=== PATIENT | male | born 1950 | race Caucasian/White ===

== ENCOUNTER 2017-03-13 13:29 | Emergency (ER) | payer BC ==
[~2017-03-13] VITALS: Ht 177.8 cm; Wt 102.6 kg
[~2017-03-13 13:29] MED LIST: LISI-729 PO
[2017-03-13 13:38] VITALS: TEMP 36.8; Ht 177.8 cm; Wt 102.6 kg
[2017-03-13] MEDS ORDERED: SODIUM CHLORIDE 0.9% 1000ML 1,000 ML IV ONE ×2 (14:00)
[2017-03-13] MEDS ORDERED: DICYCLOMINE HCL 20 MG TAB PO ONE (14:00)
[2017-03-13] MEDS ORDERED: ONDANSETRON INJ 2 MG/ML 2 ML VIAL IV PRN (14:00)
--- NOTE | 2017-03-13 14:03 | EMERGENCY ROOM VISIT NOTE ---
History First contact with patient: 13:42 Chief Complaint: VOMITING Stated Complaint: NAUSEA, DIARRHEA History of Present Illness The patient is a 66 year old male who presents to the Emergency Room with complaints of nausea, vomiting and diarrhea for the last 2 days. The patient also describes a sharp, stabbing, intermittent epigastric discomfort. The diarrhea has been much worse in the vomiting. He denies any blood in his stool. No fever or chills. No known sick contacts. He is now feeling slightly lightheaded. He has not taken anything for her symptoms at home. Review of Systems 10 system review performed and negative unless noted in HPI or below Past Medical/Surgical History Otherwise healthy Social History Smoking Status: Former Smoker Marital Status: Housing Status: lives with significant other Occupation Status: retired Current/Historical Medications Scheduled Multivitamins/Minerals (Mvi With Minerals), 1 TAB PO QAM Ondasetron Odt (Zofran Odt), 4 MG SL Q6H Zolpidem Tartrate (Ambien), 5 MG PO HS Physical Exam Vital Signs Date Time Temp Pulse Resp B/P (MAP) Pulse Ox O2 Delivery O2 Flow Rate FiO2 03/13/17 16:45 77 21 137/87 96 03/13/17 15:18 74 19 137/91 95 Room Air 03/13/17 13:38 36.8 95 20 124/88 95 Room Air Physical Exam VITALS: Vitals are noted on the nurse's note and reviewed by myself. Vital signs stable. GENERAL: 66-year-old male, acutely ill in appearance,, SKIN: The skin was without rashes, erythema, edema, or bruising. HEAD: Normocephalic atraumatic. MOUTH: Mucous membranes dry NECK: Supple without nuchal rigidity. No lymphadenopathy. Cervical spine is nontender. No JVD. HEART: Regular rate and rhythm without murmurs gallops or rubs. LUNGS: Clear to auscultation bilaterally without wheezes, rales or rhonchi. No accessory muscle use. ABDOMEN: Positive bowel sounds x 4.Soft, nontender, without organomegaly. No guarding or rebound tenderness. MUSCULOSKELETAL: No muscle atrophy, erythema, or edema noted. Strength 5/5 throughout. NEURO: Patient was alert and oriented to person place and time. Normal sensation to touch. No focal neurological deficits. Medical Decision & Procedures ER Provider Diagnostic Interpretation: Chest/abdominal x-rays Patient Name: ADWOA MOORE Unit Number: [id number] Dictated: 03/13/171446 Transcribed: 03/13/171446 MS Printed Date/Time: [~ rep prt dt]/[~ rep prt tm] [~ rep ct labl] - [~ rep ct ivnm] [facility] Radiology Department [place] [id number] Dictated: 03/13/171446 Transcribed: 03/13/171446 MS Printed Date/Time: [~ rep prt dt]/[~ rep prt tm] [~ rep ct labl] - [~ rep ct ivnm] IMPRESSION: Normal study. The above report was generated using voice recognition software. It may contain grammatical, syntax or spelling errors. Electronically signed by: Morales Hughes M.D. 03/13/2017 2:51 PM Dictated Date/Time: 03/13/2017 2:47 PM The status of this report is Signed. Draft = Not yet reviewed or approved by Radiologist. Signed = Reviewed and approved by Radiologist. <AttendingPhy></AttendingPhy> <FamilyPhy>Jose Manuel Manrique D.O.</FamilyPhy> < PrimaryPhy>Radu Norton M.D.</PrimaryPhy> <UnitNumber>[id number]</ UnitNumber> <VisitNumber>[id number]</VisitNumber> <PatientName>ADWOA MOORE</PatientName> <DateOfBirth>1950</DateOfBirth> <Location>[facility]</ Location> <ServiceDate>03/13/17</ServiceDate> <MNE>ESINDI</MNE> <OrderingPhy> Any Garcia PA-C</OrderingPhy> <OrderingPhyMNE>f rep ord dr dyson</ OrderingPhyMNE> <DictatingPhyMNE>f rep dict dr dyson</DictatingPhyMNE> <CCListMNE> f rep ct mne</CCListMNE> <AdmittingPhyMNE>f pt admit dr dyson</AdmittingPhyMNE> < AttendingPhyMNE>f pt attend dr dyson</AttendingPhyMNE> <ConsultingPhyMNE>f pt consult dr dyson</ConsultingPhyMNE> <FamilyPhyMNE>f pt fam dr dyson</FamilyPhyMNE> <OtherPhyMNE>f pt other dr dyson</OtherPhyMNE> < PrimaryPhyMNE>f pt prim care dr dyson</PrimaryPhyMNE> <ReferringPhyMNE>f pt referring dr dyson</ReferringPhyMNE> Laboratory Results 03/13/17 14:10 Red Blood Count 6.13, Mean Corpuscular Volume 88.3, Mean Corpuscular Hemoglobin 33.0, Mean Corpuscular Hemoglobin Concent 37.3, Mean Platelet Volume 11.1, Neutrophils (%) (Auto) 70.9, Lymphocytes (%) (Auto) 14.1, Monocytes (%) (Auto) 13.2, Eosinophils (%) (Auto) 1.0, Basophils (%) (Auto) 0.3, Neutrophils # (Auto ) 9.39, Lymphocytes # (Auto) 1.87, Monocytes # (Auto) 1.75, Eosinophils # (Auto ) 0.13, Basophils # (Auto) 0.04 03/13/17 14:10 Test 03/13/17 14:10 White Blood Count 13.24 K/uL (4.8-10.8) Red Blood Count 6.13 M/uL (4.7-6.1) Hemoglobin 20.2 g/dL (14.0-18.0) Hematocrit 54.1 % (42-52) Mean Corpuscular Volume 88.3 fL (80-100) Mean Corpuscular Hemoglobin 33.0 pg (25-34) Mean Corpuscular Hemoglobin Concent 37.3 g/dl (32-36) Platelet Count 195 K/uL (130-400) Mean Platelet Volume 11.1 fL (7.4-10.4) Neutrophils (%) (Auto) 70.9 % Lymphocytes (%) (Auto) 14.1 % Monocytes (%) (Auto) 13.2 % Eosinophils (%) (Auto) 1.0 % Basophils (%) (Auto) 0.3 % Neutrophils # (Auto) 9.39 K/uL (1.4-6.5) Lymphocytes # (Auto) 1.87 K/uL (1.2-3.4) Monocytes # (Auto) 1.75 K/uL (0.11-0.59) Eosinophils # (Auto) 0.13 K/uL (0-0.5) Basophils # (Auto) 0.04 K/uL (0-0.2) RDW Standard Deviation 43.1 fL (36.4-46.3) RDW Coefficient of Variation 13.5 % (11.5-14.5) Immature Granulocyte % (Auto) 0.5 % Immature Granulocyte # (Auto) 0.06 K/uL (0.00-0.02) Anion Gap 10.0 mmol/L (3-11) Est Creatinine Clear Calc Drug Dose 58.9 ml/min Estimated GFR () 57.4 Estimated GFR (Non- 49.5 BUN/Creatinine Ratio 30.1 (10-20) Calcium Level 8.9 mg/dl (8.5-10.1) Magnesium Level 2.3 mg/dl (1.8-2.4) Total Bilirubin 1.1 mg/dl (0.2-1) Aspartate Amino Transf (AST/SGOT) 16 U/L (15-37) Alanine Aminotransferase (ALT/SGPT) 35 U/L (12-78) Alkaline Phosphatase 104 U/L (45-117) Troponin I < 0.015 ng/ml (0-0.045) Total Protein 8.6 gm/dl (6.4-8.2) Albumin 4.3 gm/dl (3.4-5.0) Globulin 4.3 gm/dl (2.5-4.0) Albumin/Globulin Ratio 1.0 (0.9-2) Lipase 89 U/L (73-393) Medications Administered Medications (Trade) Dose Ordered Sig/Jonathan Route Start Time Stop Time Status Last Admin Dose Admin Ondansetron HCl (Zofran Inj) 4 mg Q2H PRN IV 03/13/17 14:00 03/13/17 17:16 DC 03/13/17 14:28 4 MG Dicyclomine HCl (Bentyl Tab) 20 mg ONE ONCE PO 03/13/17 14:00 03/13/17 14:01 DC 03/13/17 14:28 20 MG Sodium Chloride 1,000 ml @ 999 mls/hr Q1H1M ONCE IV 03/13/17 14:00 03/13/17 15:00 DC 03/13/17 14:21 999 MLS/HR Sodium Chloride 1,000 ml @ 999 mls/hr Q1H1M ONCE IV 03/13/17 14:00 03/13/17 15:00 DC 03/13/17 15:17 999 MLS/HR ECG Indication: abdominal pain Rate (beats per minute): 81 Rhythm: normal sinus Findings: left axis deviation ED Course Patient was seen and examined Vital signs including blood pressure were reviewed medications list was verified with patient Labs were obtained, and a saline lock was established An EKG was performed. The patient was put on a monitor. He was medicated with Zofran, Bentyl and a GI cocktail. He was hydrated with 2 L normal saline. Upon reevaluation, the patient was feeling better. He tried some crackers and Powerade, which he tolerated without difficulty. We discussed the results of his workup. He voiced understanding. I reviewed discharge instructions the patient. They voiced understanding and had no further questions. Medical Decision Differential diagnosis: Viral GI illness, bacterial GI illness, pancreatitis, coronary disease, dehydration This patient is a 66-year-old male that presents to the emergency department with nausea, vomiting and diarrhea. On exam, he was significantly dehydrated. Vital signs were stable. His workup reveals mild leukocytosis of 13,000. He also has a mild elevation in creatinine likely associated to dehydration.. X- rays of the abdomen and chest were unremarkable. The patient had good symptomatic relief in the emergency department. He was given Zofran in addition to 2 L of fluids. He was tolerating a diet. I believe this is likely self-limited viral GI illness, and that he is stable to be discharged home. He and his are comfortable with this plan. He agrees to follow up with his primary care physician. He also agrees to try to stay well hydrated and follow a bland diet over the next several days. He was encouraged to return to the emergency department with any new or persistent symptoms This chart was completed in part utilizing [employer] Voice Recognition software. Attempts were made to minimize the grammatical errors, random word insertions, pronoun errors and incomplete sentences. Any formal questions or concerns about the content, text or information contained within the body of this dictation should be directly addressed to the provider for clarification. Medication Reconcilliation Current Medication List: was personally reviewed by me [place] Pressure Screening Patient's blood pressure: Normal blood pressure Impression Primary Impression: Nausea, vomiting, and diarrhea Departure Information Dispostion Home / Self-Care Condition GOOD Prescriptions Ondasetron Odt (ZOFRAN ODT) 4 Mg Tab 4 MG SL Q6H for Nausea, #20 TAB Prov: Any Garcia PA-C 03/13/17 Referrals Radu Norton M.D. (PCP) Patient Instructions ED Diet Vomiting Diarrhea, My [facility] Additional Instructions You were evaluated in the emergency department for vomiting and diarrhea. This is likely due to a viral GI illness. Please try to stay well-hydrated over the next 48 hours. Increase fluid intake with water, sports drinks and sodas such as mariangel lilibeth/sprite I would stick to clear liquids for the rest of the evening. If tolerating, advanced tomorrow to a bland diet. Please try to wash your hands as much as possible to prevent spreading of the illness. Zofran 1 tab under the tongue every 6 hours as needed for nausea Please follow-up with your primary care physician within the next 3-5 days for recheck Please do not hesitate to return to the emergency department with any new, worsening or concerning symptoms; especially, persistent vomiting, fever or worsening abdominal pain
[2017-03-13 14:32] LABS: BASO % 0.3 %; BASO ABS # 0.04 K/uL (0-0.2); COMPLETE YES; HEMATOCRIT 54.1 % (42-52); IG% 0.5 %; LYMPH % 14.1 %; LYMPH ABS # 1.87 K/uL (1.2-3.4); MEAN CELL VOLUME 88.3 fL (80-100); MEAN CORPUSCULAR HGB CONC 37.3 g/dl (32-36); MEAN PLATELET VOLUME 11.1 fL (7.4-10.4); MONO % 13.2 %; NEUT % 70.9 %; PLATELET COUNT 195 K/uL (130-400); RED BLOOD COUNT 6.13 M/uL (4.7-6.1); WHITE BLOOD COUNT 13.24 K/uL (4.8-10.8)
[2017-03-13 14:49] LABS: GLUCOSE 128 mg/dl (70-99)
[2017-03-13 14:50] LABS: BLOOD UREA NITROGEN 43 mg/dl (7-18); BUN/CREATININE RATIO 30.1 (10-20); CALCIUM 8.9 mg/dl (8.5-10.1); CARBON DIOXIDE 15 mmol/L (21-32); CHLORIDE 107 mmol/L (98-107); CREATININE 1.44 mg/dl (0.60-1.40); MAGNESIUM 2.3 mg/dl (1.8-2.4); POTASSIUM 3.8 mmol/L (3.5-5.1); SODIUM 132 mmol/L (136-145)
--- NOTE | 2017-03-13 14:52 | DIAGNOSTIC IMAGING REPORT ---
ABDOMEN 2VIEW W/PA CHEST RTN CLINICAL HISTORY: epigastric pain pain COMPARISON STUDY: No previous studies for comparison. FINDINGS: The soft tissues, psoas shadows, renal outlines and intestinal gas pattern appear normal. There is no evidence for bowel obstruction. There is no evidence for free intraperitoneal air. No abnormal abdominal calcifications are seen. A frontal view of the chest was performed and is unremarkable. IMPRESSION: Normal study. The above report was generated using voice recognition software. It may contain grammatical, syntax or spelling errors. Electronically signed by: Morales Hughes M.D. 03/13/2017 2:51 PM Dictated Date/Time: 03/13/2017 2:47 PM
[2017-03-13 14:55] LABS: ALKALINE PHOSPHATASE 104 U/L (45-117); ALT/SGPT 35 U/L (12-78); AST/SGOT 16 U/L (15-37)
[2017-03-13] MEDS ORDERED: MULT-513 PO (15:01)
[2017-03-13] MEDS ORDERED: ZOLP5TAB PO (15:01)
[2017-03-13] MEDS ORDERED: PROMETHAZINE HCL INJ 25 MG/ML 1 ML VIAL IM STA (15:21)
[2017-03-13] MEDS ORDERED: HYDROmorphone INJ 1 MG/ML SYR IV ONE (15:30)
[2017-03-13] MEDS ORDERED: ONDA4TAB10 SL (16:15)
[2017-03-13 16:45] VITALS: BP 137/87; PULSE 77; O2SAT 96
== END 2017-03-13 16:45 | disposition home or self-care (01) ==
LOC: C.EDB 13:31 → C.EDC 16:45
DX: E86.0 Dehydration (principal); R19.7 Diarrhea, unspecified; Z87.891 Personal history of nicotine dependence; Z79.899 Other long term (current) drug therapy

== ENCOUNTER 2019-06-04 09:58 | Observation (INO) ==
--- NOTE | 2019-05-11 11:49 | PAT Medication Instructions ---
Medication Instructions Date of Service May 11, 2019 Home Medications lisinopril 10 mg tablet 10 mg PO QAM multivitamin 1 tab PO QAM zolpidem 5 mg tablet 5 mg PO HS PRN DO NOT take the morning of surgery lisinopril 10 mg tablet 10 mg PO QAM multivitamin 1 tab PO QAM Take evening before surgery zolpidem 5 mg tablet 5 mg PO HS PRN (if needed) Other Notes If you have any questions please call us at [phone] or [phone] or [phone] or [phone]
--- NOTE | 2019-05-12 09:28 | Anesthesiology Consultation ---
Date of Service May 12, 2019 Assessment & Plan (1) Encounter for pre-operative examination: Chart Review Chart Review: Acceptable Risk for Surgery and Patient seen in Pre Admission Testing Teaching & Discussion Pre-Anesthesia Teaching/Discussion Notes: Instructed NPO after midnight before surgery,except medications with 15 cc of water. Medication instructions provided according to the PAT guidelines. History Surgery Operation Date: 06/04/19 07:00 Proposed Procedures p Left Total Knee Arthroplasty - Bhavik Neumann MD Height/Weight Height: 5 ft 11 in Weight: 114.8 kg Allergies Allergy/AdvReac Type Severity Reaction Status Date / Time No Known Allergies Allergy Verified 05/07/19 12:21 Medications Home Medications Medication Instructions Recorded Confirmed Last Taken lisinopril 10 mg tablet 10 mg PO QAM 04/30/19 05/07/19 Unknown multivitamin 1 tab PO QAM 04/30/19 05/07/19 Unknown zolpidem 5 mg tablet 5 mg PO HS PRN 04/30/19 05/07/19 Unknown Past Medical History Medical History Hearing deficit B/L COON Hypertension Obesity Osteoarthritis Exercise / Class Metabolic Activity III < 4 Walking/Shop/Light housework Past Family History Family History Father Colon cancer Sister History of colon polyps Son History of colon polyps Son History of colon polyps Other No family history of adverse response to anesthesia Past Surgical History Surgical History History of bowel resection large polyps History of colonoscopy History of tooth extraction Past Anesthesia History No Hx of Anesthesia Complications and No Family Hx of Anesthesia Complications History of PONV No Hx of PONV and No Hx of Motion Sickness Social History Smoking Status: Former smoker tobacco type: cigarettes Do You Dip or Chew Tobacco: Yes (1 can every week) Smoking End Date: 20 years ago Hx Alcohol Use: Yes Alcohol type: beer alcohol intake frequency: holidays/special occasions only Hx Substance Use: No substance use type: does not use Review of Systems Patient denies chest pain, shortness of breath, cough, wheezing, palpitations. Physical Exam Vital Signs VITALS BP 117/76 P 54 TEMP 97.8 SP02 98%RA RESP 16 PHYSICAL Full neck and c-spine range of motion. Full TMJ range of motion. TMD 3.5 finger breaths Mallampati Score 2 Dentition: full dentures upper/lower Lungs: clear throughout to auscultation Cardiac: regular rate and rhythm, no murmurs noted Spine: normal Carotid arteries: negative bruit Extremities: no edema Testing Laboratory Results 05/12/19 09:40 05/12/19 09:40 PT 11.2 Seconds (9.0-12.0) 05/12/19 09:40 INR 1.1 (0.9-1.1) 05/12/19 09:40 APTT 27.4 Seconds (21.0-31.0) 05/12/19 09:40 Blood Type O Positive 05/12/19 09:40 Antibody Screen NEGATIVE 05/12/19 09:40 Electrocardiogram Date: 05/12/19 Findings: + NSR @ (76) Chest X-Ray Date: 05/12/19 Findings: + NAD
[2019-05-12 10:12] LABS: Basophils # (auto) 0.03 K/uL (0-0.2); Basophils % (auto) 0.5 %; Eosinophils % (auto) 1.7 %; Hematocrit (blood only) 42.5 % (42-52); Hemoglobin 15.1 g/dL (14.0-18.0); Immature Granulocytes # (auto) 0.02 K/uL (0.00-0.02); Immature Granulocytes % (auto) 0.3 %; Lymphocytes # (auto) 1.72 K/uL (1.2-3.4); Lymphocytes % (auto) 29.9 %; Mean Corpuscular Hemoglobin 31.5 pg (25-34); Mean Corpuscular Hgb Conc 35.5 g/dL (32-36); Mean Corpuscular Volume 88.7 fL (80-100); Mean Platelet Volume 11.6 fL (7.4-10.4); Monocytes # (auto) 0.61 K/uL (0.11-0.59); Monocytes % (auto) 10.6 %; Neutrophils # (auto) 3.27 K/uL (1.4-6.5); Platelet Count 141 K/uL (130-400); Red Blood Count 4.79 M/uL (4.7-6.1); White Blood Count 5.75 K/uL (4.8-10.8)
--- NOTE | 2019-05-12 10:17 | XRay Report ---
TWO VIEW CHEST CLINICAL HISTORY: Preoperative examination. FINDINGS: PA and lateral chest radiographs are compared to study dated 03/13/2017. The cardiomediasti nal silhouette is unremarkable. The lungs and pleural spaces are clear. There is no pneumothorax. Th e skeletal structures are osteopenic. The bony thorax appears intact. Degenerative change is noted in the thoracic spine. IMPRESSION: No active disease in the chest. ACT 112: Negative or not required by law. Electronically signed by: John Gutiérrez M.D. 05/12/2019 10:16 AM
[2019-05-12 10:20] LABS: BUN Creatinine Ratio 15.7 (10-20); Creatinine Clr Calc Pharmacy 80.1 ml/min; Est GFR (African American) 78.7; Est GFR (Non-African American) 67.9; Potassium 4.6 mmol/L (3.5-5.1)
[2019-05-12 10:27] LABS: INR 1.1 (0.9-1.1); Partial Thromboplastin Time 27.4 Seconds (21.0-31.0); Prothrombin Time 11.2 Seconds (9.0-12.0)
--- NOTE | 2019-05-12 12:47 | Electrocardiogram Report ---
Test Reason : Blood Pressure : / mmHG Vent. Rate : 076 BPM Atrial Rate : 076 BPM P-R Int : 172 ms QRS Dur : 100 ms QT Int : 390 ms P-R-T Axes : 015 -21 043 degrees QTc Int : 438 ms Normal sinus rhythm Normal ECG When compared with ECG of 13-MAR-2017 13:59, No significant change was found Confirmed by Rodrick Walker ([id number]) on 05/12/2019 12:47:17 PM Referred By: Bhavik Neumann Confirmed By:Rodrick Walker
--- NOTE | 2019-05-28 20:39 | History and Physical Report ---
DATE OF ADMISSION: 06/04/2019 CHIEF COMPLAINT: Left knee pain and discomfort. HISTORY OF PRESENT ILLNESS: The patient is a 69-year-old gentleman, his is a patient of mine who had bilateral knee replacement, who presents for surgical treatment of his left knee. He is referred by my partner Dr. Lovell. A 7-year history of increasing left knee pain and discomfort. He has a history of a knee arthroscopy done in [facility] about 30 years ago. He has got global pain in his knee. The more he walks, the more it hurts. He has had a very difficult time during hunting season due to pain and discomfort. He has had an injection which provides temporary relief only. He has nighttime pain. He would like to have his left knee replaced. PAST MEDICAL HISTORY: 1. Arthritis. 2. Mild obesity with BMI of 35. PAST SURGICAL HISTORY: Include: 1. Left knee arthroscopy done 30 years ago at [facility]. 2. Colon removal for polyps. ALLERGIES: None. CURRENT MEDICINES: Include: 1. Multivitamin. 2. Lisinopril 10 mg a day. 3. Zolpidem 5 mg at nighttime. 4. Move Free. SOCIAL HISTORY: A 68-year-old male. He is from [place]. He is . Does not smoke. FAMILY HISTORY: Significant for colon cancer. REVIEW OF HISTORY: Negative for diabetes, neurologic problem, vascular problems or bleeding disorders. Denies any chest pain or shortness of breath. No signs of DVT or PE. No known bleeding problems. PHYSICAL EXAMINATION: GENERAL: Shows a pleasant, middle-aged male. Looks to be in pretty good health. HEENT: Benign. NECK: Supple, no lymphadenopathy. LUNGS: Clear to auscultation. HEART: Has a regular rate and rhythm. ABDOMEN: Soft, nontender, nondistended. EXTREMITIES: Grossly neurovascularly intact except as follows: Examination of the knee reveals patient walks with a fairly normal gait. Walks a little bit stiff legged. His knee alignment looks pretty neutral. May be just slightly the valgus. He has got small knee effusion. Range of motion is about 10 degrees short of full extension to 115 degrees of flexion. He has no pain with hip motion. X-RAYS: X-rays of the left knee reviewed. Shows advanced left knee tricompartment DJD. He has got complete loss of his lateral joint space on the 40-degree flexion films. He has got medial disease as well as patellofemoral arthritis. He has got some chondrocalcinosis. He has got osteophytes in all 3 compartments. ASSESSMENT: A 68-year-old male with a history of a left knee arthroscopy many years ago with left knee tricompartment degenerative joint disease. He has failed conservative treatment and would like to have his left knee replaced. PLAN: We will take him to the operating room and do a left total knee replacement. The risks and benefits of this procedure were explained to the patient including but not limited to DVT, PE, , infection, neurological injury, vascular injury, bleeding problem, pain, limited range of motion, stiffness, failure to relieve symptoms, incomplete relief of symptoms, need for further surgery in future, fracture, leg length inequality, nerve palsy, etc. The patient understands and desires to proceed. Informed consent was obtained. We did talk to him about holding his lisinopril the morning of surgery. He is planning to be discharged to home using [facility] home health program. ARMANDO
[~2019-06-04 09:58] MED LIST changes: +ACETAMINOPHEN 500 MG TAB PO SCH; +BUPIVACAINE 0.5 % 5 MG/1 ML PF 10ML VIAL ONE; +BUPIVACAINE LIPOSOME/PF 266 MG, BUPIVACAINE/EPINEPHRINE 50 ML, SODIUM CHLORIDE 0.9% 30 ... INFIL SCH; +CEFAZOLIN 2000MG 2,000 MG/15 ML SYR IV SCH; +EPINEPHrine INJ 1 MG/ML AMP ONE; +FAMOTIDINE 20 MG TAB PO SCH; +GABAPENTIN 300 MG CAP PO SCH; -LISI-729 PO; +LR 500ML BOLUS, THEN 15ML/HR IV SCH; +LR 60ML/HR IV SCH; +METOCLOPRAMIDE HCL 10 MG TABLET PO SCH; +ROPIVACAINE 0.5% 5 MG/ML 30 ML VIAL ONE; +TRANEXAMIC ACID 1,000 MG **IV Intra-op IV SCH
--- NOTE | 2019-06-04 10:40 | History & Physical Bridge Note ---
Date of Service June 04, 2019 History & Physical Bridge Note I have examined the patient, reviewed the History & Physical and in the interval since the performance of the History & Physical I have noted the following changes of clinical significance: no changes noted
[2019-06-04] MEDS ORDERED: PROPOFOL IV EMULSION 10 MG/ML 20 ML VIAL IV ONE ×3 (12:24→14:33)
[2019-06-04] MEDS ORDERED: LIDOCAINE HCL 2% 2 ML VIAL/AMP(20MG/ML) INFIL ONE (12:24)
[2019-06-04] MEDS ORDERED: MIDAZOLAM HCL 1 MG/ML 2ML VIAL ONE (12:24)
[2019-06-04] MEDS ORDERED: BUPIVACAINE LIPOSOME 1.3% 266 MG/20 ML VIAL ONE (12:48)
[2019-06-04] MEDS ORDERED: BUPIVACAINE/EPINEPHRINE 0.25% 1:200,000 30 ML VIAL ONE (12:48)
[2019-06-04] MEDS ORDERED: BACITRACIN INJ 50,000 UNIT VIAL ONE (12:48)
[2019-06-04] MEDS ORDERED: SODIUM CHLORIDE 0.9% PF 50 ML VIAL ONE (12:48)
[2019-06-04] MEDS ORDERED: ATROPINE SULFATE 0.1 MG/ML 10ML SYR IV PRN (13:07)
[2019-06-04] MEDS ORDERED: ePHEDrine sulfate 50 MG/ML AMP IV PRN (13:07)
[2019-06-04] MEDS ORDERED: GLYCOPYRROLATE 0.2 MG/ML VIAL ONE (13:19)
[2019-06-04] MEDS ORDERED: KETAMINE HCL INJ 50 MG/ML 10 ML VIAL ONE (13:20)
--- NOTE | 2019-06-04 15:07 | Post Operative Brief Note ---
PG Immediate Post Op with CF Date of Surgery June 04, 2019 Pre & Post Diagnosis Operation Date: 06/04/19 12:30 Pre-Op Diagnosis: Left Knee Tricompartment Degenerative Joint Disease Post-Op Diagnosis: Left Knee Tricompartment Degenerative Joint Disease I identified the patient and participated in the time-out.: Yes Procedure Operation Date: 06/04/19 12:30 Actual Procedures p Left Total Knee Arthroplasty(Left) - Bhavik Neumann MD Surgeon Bhavik Neumann MD Property Management Intern Cinda, PAC Estimated Blood Loss 50 Findings Consistent with Post-Op Diagnosis Fluids 1500 cc Specimens Specimen Description: A. Left Knee Bone and Tissue Drains Oliver Catheter Anesthesia Type Spinal MAC Complications none Disposition Accompanied Patient To Recovery: Yes Disposition: Recovery Room
[2019-06-04] MEDS ORDERED: ALBUMIN HUMAN 5% 12.5 GM/250 ML VIAL IV ONE (15:21)
--- NOTE | 2019-06-04 15:40 | XRay Report ---
XR knee LT 1 or 2V routine HISTORY: 69 years-old Male Surgical Post Op left knee total joint arthroplasty COMPARISON: Knee radiographs 04/30/2019 TECHNIQUE: 2 views of the left knee FINDINGS: Left knee total joint arthroplasty and patella resurfacing demonstrates satisfactory alignment. No ac [place] fracture, dislocation or opaque foreign body. Anterior midline skin marvin are noted along with expected postsurgical soft tissue swelling with deep tissue air an surgical drainage catheter. IMPRESSION: Left knee total joint arthroplasty with expected postoperative findings. ACT 112: Negative or not required by law. The above report was generated using voice recognition software. It may contain grammatical, syntax o r spelling errors. Electronically signed by: Tony Lambert M.D. 06/04/2019 3:39 PM
[2019-06-04] MEDS ORDERED: ALBUMIN 5% 250 ML IV SCH (15:45)
--- NOTE | 2019-06-04 16:11 | Anesthesiology Progress Note ---
Date of Service June 04, 2019 Anesthesia Post Procedure Vital Signs Vital Signs: Temp Pulse Pulse Resp BP Pulse Ox 06/04/19 16:00 36.4 C L 69 13 108/64 99 06/04/19 15:50 67 15 108/59 L 99 06/04/19 15:40 75 15 93/68 L 96 06/04/19 15:30 74 15 97/61 L 96 06/04/19 15:20 82 14 83/51 L 96 06/04/19 15:12 36.5 C 83 12 84/51 L 94 06/04/19 10:49 36.9 C 75 18 130/88 96 Transfer of Care Handoff Completed per policy Notes Mental Status: alert / awake / arousable Patient Amnestic to Procedure: Yes Nausea / Vomiting: adequately controlled Pain: adequately controlled Airway Patency, RR, SpO2: stable & adequate BP & HR: stable & adequate Hydration State: stable & adequate Neuraxial Anesthesia: was administered and sensory block is resolving Anesthetic Complications: no major complications apparent
[2019-06-04] MEDS ORDERED: TAMSULOSIN HCL 0.4 MG CAP PO PRN (16:28)
[2019-06-04] MEDS ORDERED: ALUMINUM/MAGNESIUM SUSP 30 ML UDC PO PRN (16:28)
[2019-06-04] MEDS ORDERED: ONDANSETRON INJ 2 MG/ML 2 ML VIAL IV PRN (16:28)
[2019-06-04] MEDS ORDERED: ZOLPIDEM TARTRATE 5 MG TAB PO PRN (16:28)
[2019-06-04] MEDS ORDERED: NALOXONE HCL 0.4 MG/1 ML VIAL/CARP IV PRN (16:28)
[2019-06-04] MEDS ORDERED: MAGNESIUM HYDROXIDE SUSP 30 ML UDC PO PRN (16:28)
[2019-06-04] MEDS ORDERED: HYDROmorphone INJ 0.5 MG/0.5 ML SYR IV PRN (16:28)
[2019-06-04] MEDS ORDERED: METOCLOPRAMIDE HCL INJ 5 MG/ML 2 ML VIAL IV PRN (16:28)
[2019-06-04] MEDS ORDERED: bisacodyL 10 MG SUPP PR PRN (16:28)
[2019-06-04] MEDS: SODIUM CHLORIDE 0.9% 1000ML 1,000 ML IV SCH ×2 (16:56→23:21)
--- NOTE | 2019-06-04 17:20 | Operative Report ---
Post Operative Report Pre & Post Diagnosis Operation Date: 06/04/19 12:30 Pre-Op Diagnosis: Left Knee Tricompartment Degenerative Joint Disease Post-Op Diagnosis: Left Knee Tricompartment Degenerative Joint Disease I identified the patient and participated in the time-out.: Yes Procedure Operation Date: 06/04/19 12:30 Actual Procedures p Left Total Knee Arthroplasty(Left) - Bhavik Neumann MD Surgeon Bhavik Neumann MD Credentials Specialist Cinda, PAC Estimated Blood Loss 50 Findings Consistent with Post-Op Diagnosis Operative findings revealed advanced right knee tricompartment DJD. This is most severe in the lateral side with eburnation of the lateral femoral condyle and lateral tibial plateau. He had grade 4 changes in all 3 compartments. He had a valgus deformity to his knee. A chronic ACL deficiency. Fluids 1500 cc. Specimens Left knee sent for pathology. Drains None. Anesthesia Type Spinal MAC Complications none Disposition Accompanied Patient To Recovery: Yes Disposition: Recovery Room Indications Patient is a 69-year-old fairly active gentleman is had a long history of left knee pain discomfort. He had multiple injuries to his knee in the past. He had a knee arthroscopy done 30+ years ago. Over time he developed increased pain discomfort and deformity to his knee. Failed all conservative treatment. He elected proceed with total knee arthroplasty. Description of Procedure Operative implants consist of: 1. Biomet Vanguard size 72.5 left posterior by femoral component. 2. Biomet size 75 tibial tray. 3. 10 mm posterior box polyethylene insert. 4. 34 x 8 and half all poly-patella. Patient was taken to the operating identified and placed on the operating table supine position. All contact areas were appropriately padded. A spinal anesthetic and abductor canal block had provided in the holding area. Oliver catheter was placed in sterile fashion. A left thigh turn was then placed in the left lower extremities and prepped and draped in usual sterile fashion. The left leg was elevated and exsanguinated with use of an Esmarch and turns placed at 3 mmHg. An anterior posterior left knee was then performed to longitudinal incision centered over the patella. Sharp dissection was cut through subcutaneous tissue down to the extensor mechanism. Medial parapatellar patellar arthrotomy incision was made. Some subperiosteal dissection was carried out medially. The fat pad was resected from each patella tendon. Lateral patellofemoral ligament was released. Patella was subluxated laterally and the knee was flexed. The osteophytes were taken off the distal femur. The ACL was absent. The PCL was released from the distal femur and the tibia subluxated anteriorly. The external tibial alignment jig was then placed in the interface the tibia and adjusted 14 mm medially. Proximal tibial cut was made to remove 3 to 4 mm of bone from the medial side. The tibia was then sized to a size 75. We did I did have to downsize this in order to get appropriate rotation. Attention drawn the femur. The distal femur then with a sharp drill bit intramedullary canal was suction. A left a 5 degree valgus cutting guide was placed but this femoral cutting block was pinned in place. Distal femoral cut was made to take an additional 5 mm of bone off distal femur. The femur was then sized to a size 72.5. I brought the knee out in extension and did release of the IT band in order to equalize the extension gap. The knee was then flexed. The AP cutting block was pinned parallel to the epicondylar axis which was 6 degrees of external rotation. The anterior cut, anterior chamfer, posterior cut, posterior chamfer cuts were made. Box cutting guide was placed in just slight lateral box cut was made. The knee was flexed. The remnants of the medial lateral menisci were excised. The osteophytes were taken off the posterior aspect the femur. A trial femoral component was placed. The tibial tray was pinned in maximum external rotation and drill and stem punch were used to create defect in proximal tip for the tibial tray. I did have to release the popliteus knee in order to equalize the flexion gap. I then trialed the knee and the 10 mm insert fit most appropriately. Attention drawn the patella. Patella was cleaned of all soft tissues. Patella thickness measured 25 mm in thickness was cut down to 15. Was sized to a size 34 patella. Locals were drilled for 34 patella. Lateral osteophyte is moved. Patella button was placed. Knee was taken through range of motion patella tracked nicely with no thumbs test. Attention turned to placing the permanent components. All trial components were removed. A bone plug was placed in the disc femur limit blood loss put a double batch Palacos G cement was mixed. BiomBehavioSecguard size 72.5 left posterior by femoral component, a size 75 tibial tray, a 10 mm posterior box polyethylene insert, and 34 x 8 and half all poly-patella were then cemented in place. Knee was brought in full extension total cement hardened. Final cement check was then performed. Pericapsular tissues were injected with total 100 cc of combination of 20 cc of Exparel, 30 cc normal saline, 50 cc of quarter percent Marcaine with epinephrine. Patient did receive 1 g of tranexamic acid per the tourniquet was then let down for final tourniquet time of 70 minutes. Hemostasis assured use electrocautery. The wound was once again irrigated. The extensor mechanism closed with combination 1 PDS suture #1 Vicryl suture in [id number] fashion. Extensor mechanism checked found to be intact with subcutaneous tissue then closed with 2 Dexon suture in buried knot fashion skin was closed skin marvin. Leg was then cleaned dried a sterile dressing composed Xeroform, 4 x 4's, sterile cast padding, Flip bandage were applied. Patient then transferred to the recovery room in stable condition. Patient tolerated procedure well no complications I attest to the content of the Intraoperative Record and any orders documented therein. Any exceptions are noted below.
[2019-06-04] MEDS: CEFAZOLIN 2000MG 2,000 MG/15 ML SYR IV SCH (17:57)
[2019-06-04] MEDS: KETOROLAC TROMETHAMINE 15 MG/ML VIAL IV SCH ×2 (17:57→23:21)
[2019-06-04] MEDS: ASCORBIC ACID 500 MG TAB PO SCH (17:57)
[2019-06-04] MEDS: FERROUS GLUCONATE 324 MG TAB PO SCH (17:57)
[2019-06-04] MEDS: OXYCODONE HCL IR 5 MG TAB (IMMEDIATE RELEASE) PO PRN ×2 (18:02→18:25)
--- NOTE | 2019-06-04 18:26 | Progress Notes ---
DATE: 06/04/2019 SUBJECTIVE: A 69-year-old gentleman postop from a left knee replacement. He is doing well. Just starting to get some pain in his leg. No chest pain or shortness of breath. Not feeling dizzy or lightheaded. OBJECTIVE: VITAL SIGNS: Temperature 36.3. Vital signs stable. GENERAL: Shows a pleasant, middle-aged male. He is sitting up in bed, looks pretty comfortable. He is talking to a friend. LUNGS: Clear to auscultation. HEART: Has a regular rate and rhythm. ABDOMEN: Soft, nontender, nondistended. EXTREMITIES: Grossly neurovascularly intact except as follows: Examination of the left lower extremity reveals the leg to be well aligned. Dressing is clean, dry, and intact. He can dorsiflex and plantarflex his foot appropriately. He is neurologically intact. He has brisk refill. X-RAYS: X-rays of the left knee from recovery room reviewed. It shows a cemented posterior stabilized total knee arthroplasty. Components looked to be in good position. No signs of problems. ASSESSMENT: 69-year-old gentleman postop from a left knee replacement, doing well. Pain is controlled. He is neurologically intact. PLAN: 1. DVT prophylaxis including thigh-high TEDS, SCDs, and baby aspirin twice a day for 6 weeks total. 2. PT/OT. Weight bear as tolerated. Left total knee protocol. 3. Pain control, doing well with current pain regimen. We are going to use Tylenol around the clock in addition to some low dose Toradol at 15 mg. We will use oxycodone p.r.n. He is also getting Nucynta every 12 hours while in the hospital. 4. IV antibiotics x24 hours. 5. Disposition: He is planning to be discharged to home using [facility] home health program once medically stable, likely either Friday or Friday.
[2019-06-04] MEDS ORDERED: NON-FORMULARY MEDICATION (Glucosam-Chond-Hyalu-Cf Borate [Move Free Joint Health] 1 TAB) PO SCH (21:00)
[2019-06-04] MEDS ORDERED: TRANEXAMIC ACID / 0.7% NACL 1,000 MG/100 ML BAG IV SCH (21:00)
[2019-06-04] MEDS ORDERED: SENNA 8.6 MG TAB PO SCH (21:00)
[2019-06-04] MEDS: DOCUSATE SODIUM 100 MG CAP PO SCH (21:22)
[2019-06-04] MEDS: ACETAMINOPHEN 500 MG TAB PO SCH (21:22)
[2019-06-04] MEDS: ASPIRIN 81 MG ECTAB PO SCH (21:22)
[2019-06-05] MEDS: CEFAZOLIN 2000MG 2,000 MG/15 ML SYR IV SCH (01:55)
[2019-06-05] MEDS: OXYCODONE HCL IR 5 MG TAB (IMMEDIATE RELEASE) PO PRN (02:00)
[2019-06-05 06:11] LABS: Hemoglobin 12.5 g/dL (14.0-18.0); Mean Corpuscular Hemoglobin 31.4 pg (25-34); Mean Corpuscular Hgb Conc 35.7 g/dL (32-36); Mean Corpuscular Volume 87.9 fL (80-100); Mean Platelet Volume 10.7 fL (7.4-10.4); Platelet Count 117 K/uL (130-400); RDW Coefficient of Variation 12.7 % (11.5-14.5); RDW Standard Deviation 40.9 fL (36.4-46.3); Red Blood Count 3.98 M/uL (4.7-6.1); White Blood Count 7.21 K/uL (4.8-10.8)
[2019-06-05] MEDS: SODIUM CHLORIDE 0.9% 1000ML 1,000 ML IV SCH (06:11)
[2019-06-05] MEDS: KETOROLAC TROMETHAMINE 15 MG/ML VIAL IV SCH (06:11)
[2019-06-05] MEDS: ACETAMINOPHEN 500 MG TAB PO SCH (06:11)
[2019-06-05 06:48] LABS: BUN Creatinine Ratio 12.4 (10-20); Calcium 7.9 mg/dl (8.5-10.1); Creatinine Clr Calc Pharmacy 80.4 ml/min; Est GFR (African American) 78.7; Est GFR (Non-African American) 67.9
[2019-06-05] MEDS: FERROUS GLUCONATE 324 MG TAB PO SCH (08:51)
[2019-06-05] MEDS: DOCUSATE SODIUM 100 MG CAP PO SCH (08:51)
[2019-06-05] MEDS: ASCORBIC ACID 500 MG TAB PO SCH (08:51)
[2019-06-05] MEDS: ASPIRIN 81 MG ECTAB PO SCH (08:51)
[2019-06-05] MEDS ORDERED: lisinopriL 10 MG TAB PO SCH (09:00)
[2019-06-05] MEDS ORDERED: MULTIVITAMIN TAB PO SCH ×2 (09:00)
--- NOTE | 2019-06-05 09:50 | Orthopedic Progress Note ---
Date of Service June 05, 2019 Assessment & Plan (1) Left knee DJD: ASSESSMENT: 69-year-old gentleman postop from a left knee replacement, doing well. Pain is controlled. Making excellent progress. PLAN: 1. DVT prophylaxis including thigh-high TEDS, SCDs, and baby aspirin twice a day for 6 weeks total. 2. PT/OT. Weight bear as tolerated. Left total knee protocol. 3. Pain control, doing well with current pain regimen. 4. Disposition: He is planning to be discharged to home using [facility] home health program. Pain looks to be controlled. Will try to arrange discharge today vs tomorrow. Present on Admission?: Yes Subjective Sitting in chair reports some pain, but tolerable. PT in room and states that he is making good progress and sees no issues with going home today with Home Health. Denies SOB, chest pain, N/V. Review of Systems Review of Systems: All systems reviewed & are unremarkable except as noted in HPI & below Physical Exam Physical Exam: LLE: Flip wrap c/d/i. +DF/PF/EHL. 2+ dp pulse, brisk refill. Knee ROM 5-95 Results & Data ([facility]) Vital Signs (Past 12 Hours) Vital Signs Temp Pulse Pulse Resp BP Pulse Ox 06/05/19 07:33 36.8 C 81 18 123/80 97 06/05/19 02:37 36.7 C 72 16 123/75 97 06/04/19 23:18 36.7 C 77 16 136/80 95 PG Care Time/CCT Total # of Minutes Spent Total Time Spent with Patient: Total time spent is greater than 50% in coordination of care (as documented) at patient's floor/unit and/or counseling patient: Coding Level of Care Code None Diagnoses Left knee DJD M17.12
--- NOTE | 2019-06-07 19:12 | Discharge Summary (DS) ---
ADMITTING PHYSICIAN AND SURGEON: Dr. Bhavik Neumann. ADMITTING DIAGNOSIS: Left knee degenerative joint disease. SURGERY PERFORMED: Left total knee arthroplasty. SECONDARY DIAGNOSES: Arthritis, mild obesity. CONSULTS: None obtained. HISTORY AND PHYSICAL EXAMINATION: Well documented in the patient's chart. HOSPITAL COURSE: The patient was admitted on 06/04/2019 and underwent total knee arthroplasty, tolerated the procedure well. There were no complications. He was transferred to the PACU postoperatively and later to the orthopedic floor for further care. He was given Ancef for antibiotic prophylaxis, LUCY stockings, SCDs and aspirin for DVT prophylaxis. Hemoglobin, hematocrit and vital signs were monitored during his hospital stay and remained stable, did not require any blood transfusions. There were no complications. On postoperative day 1, he was tolerating a regular diet, pain was controlled with oral pain medicine. He was participating in physical therapy. Postop day 1, he was discharged home, set up with home health services. He was given printed discharge instructions as well as new prescriptions for extra strength Tylenol, aspirin and oxycodone. Continue his home medications, continue physical therapy, weightbearing as tolerated, LUCY stockings. Follow up approximately 2 weeks postop or sooner if there are any problems or concerns.
== END 2019-06-05 11:23 | disposition home health service (06) ==
LOC: 3E 09:58 → ASU 09:58